=== PATIENT | female | born 1940 | race African-American/Black ===

== ENCOUNTER 2021-02-02 18:15 | Emergency (ER) | payer OTHER ==
[~2021-02-02] VITALS: Ht 167.6 cm; Wt 100.0 kg
[2021-02-02 19:27] LABS: BASOPHILS % 0.1 % (0.0-2.0); EOSINOPHILS % 0.5 % (0.0-5.0); HEMATOCRIT. 32.5 % (36.0-48.0); HEMOGLOBIN. 11.2 g/dL (12.0-16.0); MEAN CORPUSCULAR HEMOGLOBIN 33.6 pg (28.0-32.0); MEAN CORPUSCULAR VOLUME 97.4 fL (81.0-99.0); MEAN PLATELET VOLUME 10.2 fl (7.4-10.4); MONOCYTES % 8.2 % (2.0-8.0); NEUTROPHILS % 77.2 % (40.0-76.0); PLATELET 156 x1000/uL (130-400); RED BLOOD CELL COUNT 3.33 mill/uL (4.2-5.4); RED CELL DISTRIBUTION WIDTH 13.3 % (11.6-14.6)
[2021-02-02 19:42] LABS: CHLORIDE 106 mEq/L (98-107)
[2021-02-02 19:47] LABS: ETHANOL BLOOD < 10 mg/dL
[2021-02-02] MEDS ORDERED: ACETAMINOPHEN 325MG TABLET PO ONE (21:00)
[2021-02-02] MEDS ORDERED: MORPHINE SULFATE 2 MG/ML CPJ (NOT FOR IM USE) IV ONE (21:00)
[2021-02-02 22:34] LABS: CLARITY URINE CLEAR (CLEAR); COLOR URINE YELLOW (YELLOW); KETONES URINE NEGATIVE (NEGATIVE); LEUKOCYTE ESTERASE URINE NEGATIVE (NEGATIVE); NITRITE URINE NEGATIVE (NEGATIVE); OCCULT BLOOD URINE NEGATIVE (NEGATIVE); PH URINE 5.5 (4.5-8.0); PROTEIN URINE NEGATIVE (NEGATIVE); SPECIFIC GRAVITY URINE 1.008 (1.005-1.030); UROBILINOGEN URINE 0.2 E.U./dL (0.2-1.0)
[2021-02-02 22:43] LABS: *BARBITURATES SCREEN URINE NEGATIVE (NEGATIVE)
[2021-02-02 22:44] LABS: *AMPHETAMINES SCREEN URINE NEGATIVE (NEGATIVE); *BENZODIAZEPINES SCREEN URINE NEGATIVE (NEGATIVE); *COCAINE SCREEN URINE NEGATIVE (NEGATIVE); CANNABINOID URINE SCREEN PRESUMTIVE POSITIVE (NEGATIVE); METHADONE URINE SCREEN NEGATIVE (NEGATIVE); OPIATES URINE SCREEN NEGATIVE (NEGATIVE); PHENCYCLIDINE URINE SCREEN NEGATIVE (NEGATIVE)
[2021-02-03 02:17] VITALS: BP 159/51
== END 2021-02-03 02:37 | disposition short-term general hospital (02) ==
LOC: ER 18:15
DX: M79.18 Myalgia, other site (principal); R53.1 Weakness; E11.9 Type 2 diabetes mellitus without complications; I10 Essential (primary) hypertension
CPT/HCPCS: 36415; 70450; 71045; 72170; 73060; 73090; 73552; 80053; 80305; 80320; 81003; 82140; 82962; 83605; 83690; 84484; 85025; 86850; 86900; 86901; 93005; 96374; 99285; J2270; G0480

== ENCOUNTER 2022-01-29 09:13 | Emergency (ER) | payer OTHER ==
[~2022-01-29] VITALS: Ht 170.2 cm; Wt 75.0 kg
[2022-01-29] MEDS ORDERED: SODIUM CHLORIDE 0.9% 1000ML BAG (SEPSIS BOLUS) IV ONE (09:45)
[2022-01-29 10:20] LABS: BASOPHILS % 0.2 % (0.0-2.0); EOSINOPHILS % 0.7 % (0.0-5.0); HEMATOCRIT. 34.1 % (36.0-48.0); HEMOGLOBIN. 11.4 g/dL (12.0-16.0); LYMPHOCYTES % 17.5 % (20.0-50.0); MEAN CORPUSCULAR VOLUME 98.8 fL (81.0-99.0); MEAN PLATELET VOLUME 8.8 fl (7.4-10.4); NEUTROPHILS % 74.6 % (40.0-76.0); PLATELET 194 x1000/uL (130-400); RED BLOOD CELL COUNT 3.45 mill/uL (4.2-5.4); RED CELL DISTRIBUTION WIDTH 13.1 % (11.6-14.6)
[2022-01-29 10:28] LABS: CHLORIDE 104 mEq/L (98-107)
[2022-01-29 10:31] LABS: INR 0.9
[2022-01-29 12:50] LABS: CLARITY URINE CLEAR (CLEAR); COLOR URINE YELLOW (YELLOW); KETONES URINE NEGATIVE (NEGATIVE); LEUKOCYTE ESTERASE URINE NEGATIVE (NEGATIVE); NITRITE URINE NEGATIVE (NEGATIVE); OCCULT BLOOD URINE NEGATIVE (NEGATIVE); PH URINE 6.5 (4.5-8.0); PROTEIN URINE NEGATIVE (NEGATIVE); SPECIFIC GRAVITY URINE 1.011 (1.005-1.030)
[2022-01-29 14:00] VITALS: BP 129/56
== END 2022-01-29 14:29 | disposition short-term general hospital (02) ==
LOC: ER 09:29
DX: E86.0 Dehydration (principal); E11.9 Type 2 diabetes mellitus without complications; I10 Essential (primary) hypertension
CPT/HCPCS: 36415; 71045; 80053; 81003; 83605; 84145; 84484; 85025; 85610; 87040; 93005; 99285; J7030

== ENCOUNTER 2023-04-07 11:09 | Emergency (ER) | payer OTHER ==
[~2023-04-07] VITALS: Ht 167.6 cm; Wt 73.0 kg
[2023-04-07 11:27] VITALS: O2SAT 97
[2023-04-07] MEDS ORDERED: ONDANSETRON HCL 4MG/2ML INJ IV STA (11:29)
[2023-04-07] MEDS ORDERED: SODIUM CHLORIDE 0.9% 1,000 ML IV ONE (11:30)
[2023-04-07 13:46] LABS: BASOPHILS % 0.3 % (0.0-2.0); DIFFERENTIAL COMMENT 0; EOSINOPHILS % 0.6 % (0.0-5.0); HEMATOCRIT. 34.5 % (36.0-48.0); HEMOGLOBIN. 11.5 g/dL (12.0-16.0); LYMPHOCYTES % 18.6 % (20.0-50.0); MEAN CORPUSCULAR HEMOGLOBIN 33.3 pg (28.0-32.0); MEAN CORPUSCULAR HGB CONC 33.3 g/dL (31.0-37.0); MEAN CORPUSCULAR VOLUME 100.3 fL (81.0-99.0); MEAN PLATELET VOLUME 9.7 fl (7.4-10.4); MONOCYTES % 8.5 % (2.0-8.0); PLATELET 187 x1000/uL (130-400); RED BLOOD CELL COUNT 3.44 mill/uL (4.2-5.4); RED CELL DISTRIBUTION WIDTH 13.5 % (11.6-14.6); WHITE BLOOD COUNT 7.2 x1000/uL (4.5-11.0)
[2023-04-07 13:54] LABS: CHLORIDE 106 mEq/L (98-107); INDEX HEMOLYSI 1 (1-3); INDEX ICTERIC 1 (1-4); INDEX LIPEMIC 1 (1-3); POTASSIUM 4.3 mEq/L (3.5-5.1); SODIUM 140 mEq/L (136-145)
[2023-04-07 14:03] LABS: ALBUMIN 3.1 g/dL (3.4-5.0); ASPARTATE AMINOTRANSFERASE 18 IU/L (15-37); BILIRUBIN TOTAL 0.3 mg/dL (0.1-1.0); CALCIUM 9.3 mg/dL (8.5-10.1); CARBON DIOXIDE 29 mEq/L (21-32); CREATININE 1.2 mg/dL (0.6-1.3); PROTEIN TOTAL 6.7 g/dL (6.0-8.3); UREA NITROGEN BLOOD 20 mg/dL (7-21)
[2023-04-07 14:07] LABS: INR 0.9; PROTHROMBIN TIME 9.9 sec (9.6-11.0)
[2023-04-07] MEDS ORDERED: DIPHENHYDRAMINE 50MG CAPSULE PO ONE (15:30)
[2023-04-07 15:54] LABS: ALANINE AMINOTRANSFERASE 15 IU/L (13-61); GLUCOSE 155 mg/dL (70-105)
[2023-04-07 16:25] VITALS: BP 138/70; PULSE 70; RESP 15; TEMP 98.4
== END 2023-04-07 16:36 | disposition home or self-care (01) ==
LOC: ER 12:39
DX: R10.9 Unspecified abdominal pain (principal); E11.9 Type 2 diabetes mellitus without complications; I10 Essential (primary) hypertension; Z90.49 Acquired absence of other specified parts of digestive tract; Z98.890 Other specified postprocedural states
CPT/HCPCS: 99284; 74176; 96360; 80053; 83690; 85025; 85610; 36415; Q0163; J2405; J7030

== ENCOUNTER 2023-09-14 20:59 | Emergency (ER) | payer OTHER ==
[~2023-09-14] VITALS: Ht 172.7 cm; Wt 80.0 kg
[2023-09-14 21:01] VITALS: O2SAT 98
[2023-09-14 21:27] VITALS: TEMP 98.7
[2023-09-14] MEDS: SODIUM CHLORIDE 0.9% 1,000 ML IV ONE (22:00)
[2023-09-14 22:07] LABS: BASOPHILS % 0.3 % (0.0-2.0); EOSINOPHILS % 0.9 % (0.0-5.0); HEMATOCRIT. 36.2 % (36.0-48.0); HEMOGLOBIN. 12.2 g/dL (12.0-16.0); LYMPHOCYTES % 15.5 % (20.0-50.0); MEAN CORPUSCULAR HEMOGLOBIN 33.1 pg (28.0-32.0); MEAN CORPUSCULAR HGB CONC 33.8 g/dL (31.0-37.0); MEAN CORPUSCULAR VOLUME 97.8 fL (81.0-99.0); MEAN PLATELET VOLUME 10.4 fl (7.4-10.4); NEUTROPHILS % 77.3 % (40.0-76.0); PLATELET 193 x1000/uL (130-400); RED CELL DISTRIBUTION WIDTH 14.1 % (11.6-14.6); WHITE BLOOD COUNT 9.5 x1000/uL (4.5-11.0)
[2023-09-14 22:20] LABS: ALANINE AMINOTRANSFERASE 16 IU/L (10-49); ASPARTATE AMINOTRANSFERASE 31 IU/L (<34); BILIRUBIN TOTAL 0.3 mg/dL (0.1-1.0); CALCIUM 9.5 mg/dL (8.7-10.4); CARBON DIOXIDE 23 mEq/L (21-32); CHLORIDE 104 mEq/L (98-107); CREATININE 1.3 mg/dL (0.6-1.0); GLUCOSE 201 mg/dL (70-105); POTASSIUM 4.4 mEq/L (3.5-5.1); SODIUM 136 mEq/L (136-145); TROPONIN I HIGH SENSITIVITY 5 ng/L (3.0-34); UREA NITROGEN BLOOD 25 mg/dL (9-23)
[2023-09-14 23:14] LABS: INR 0.9; PROTHROMBIN TIME 10.6 sec (9.6-11.0)
[2023-09-14 23:16] LABS: TROPONIN I HIGH SENSITIVITY 6 ng/L (3.0-34)
[2023-09-14 23:59] LABS: CLARITY URINE CLEAR (CLEAR); COLOR URINE YELLOW (YELLOW); GLUCOSE URINE NEGATIVE (NEGATIVE); KETONES URINE NEGATIVE (NEGATIVE); LEUKOCYTE ESTERASE URINE TRACE (NEGATIVE); NITRITE URINE POSITIVE (NEGATIVE); OCCULT BLOOD URINE 1+ (NEGATIVE); PH URINE 5.5 (4.5-8.0); PROTEIN URINE 3+ (NEGATIVE); SPECIFIC GRAVITY URINE 1.013 (1.005-1.030); UROBILINOGEN URINE 0.2 E.U./dL (0.2-1.0)
[2023-09-15 00:34] LABS: BACTERIA URINE 2+; RBC URINE NONE SEEN /hpf (0-2); SQUAMOUS EPITHELIAL CELL URINE FEW /lpf (RARE/1+)
[2023-09-15] MEDS: CEFTRIAXONE 1GM PREMIX 50 ML IV ONE (02:24)
[2023-09-15 02:36] VITALS: BP 179/77; PULSE 84; RESP 14
== END 2023-09-15 02:54 | disposition short-term general hospital (02) ==
LOC: ER 20:59
DX: R55 Syncope and collapse (principal); N39.0 Urinary tract infection, site not specified; E11.9 Type 2 diabetes mellitus without complications; I10 Essential (primary) hypertension; Z90.49 Acquired absence of other specified parts of digestive tract
CPT/HCPCS: 99285; 70450; 71045; 96361; 80053; 81003; 82962; 83605; 85025; 85610; 86850; 86900; 86901; 87040; 84484; 36415; 74176; 96365; J7030; J0696

== ENCOUNTER 2024-02-14 14:31 | Inpatient (IN) | payer OTHER ==
[~2024-02-14] VITALS: Ht 167.6 cm; Wt 100.0 kg
[2024-02-14 14:35] VITALS: O2SAT 99
[2024-02-14 14:58] LABS: BASOPHILS % 0.2 % (0.0-2.0); DIFFERENTIAL COMMENT 0; HEMATOCRIT. 31.6 % (36.0-48.0); HEMOGLOBIN. 10.6 g/dL (12.0-16.0); LYMPHOCYTES % 29.1 % (20.0-50.0); MEAN CORPUSCULAR HEMOGLOBIN 33.6 pg (28.0-32.0); MEAN CORPUSCULAR HGB CONC 33.4 g/dL (31.0-37.0); MEAN CORPUSCULAR VOLUME 100.6 fL (81.0-99.0); MONOCYTES % 8.3 % (2.0-8.0); NEUTROPHILS % 61.4 % (40.0-76.0); PLATELET 199 x1000/uL (130-400); RED BLOOD CELL COUNT 3.14 mill/uL (4.2-5.4); RED CELL DISTRIBUTION WIDTH 13.3 % (11.6-14.6)
[2024-02-14] MEDS: SODIUM CHLORIDE 0.9% 1,000 ML IV ONE (15:01)
[2024-02-14] MEDS: ONDANSETRON HCL 4MG/2ML INJ IV STA (15:02)
[2024-02-14 15:03] LABS: CHLORIDE 109 mEq/L (98-107); SODIUM 139 mEq/L (136-145)
[2024-02-14 15:04] LABS: CALCIUM 8.8 mg/dL (8.7-10.4); CARBON DIOXIDE 23 mEq/L (21-32)
[2024-02-14 15:08] LABS: INR 0.9; PROTHROMBIN TIME 10.5 sec (9.6-11.0)
[2024-02-14 15:09] LABS: CREATININE 1.3 mg/dL (0.6-1.0); GLUCOSE 209 mg/dL (70-105); UREA NITROGEN BLOOD 30 mg/dL (9-23)
[2024-02-14 15:10] LABS: TROPONIN I HIGH SENSITIVITY 4 ng/L (3.0-34)
[2024-02-14 16:49] LABS: TROPONIN I HIGH SENSITIVITY 18 ng/L (3.0-34)
[2024-02-14] MEDS: ASPIRIN 325MG EC TABLET PO NR (19:04)
[2024-02-14] MEDS ORDERED: GUAIFENESIN 200MG/10ML SUGAR FREE UDC PO PRN (19:45)
[2024-02-14] MEDS ORDERED: IPRATROPIUM/ALBUTEROL 0.5-3(2.5)MG/3ML NEB NEB PRN (19:45)
[2024-02-14] MEDS ORDERED: ACETAMINOPHEN 325MG TABLET PO PRN ×2 (19:45)
[2024-02-14] MEDS ORDERED: NITROGLYCERIN 0.4MG TABLET SL SL PRN (19:45)
[2024-02-14] MEDS ORDERED: MAGNESIUM/ALUMINUM HYDROXIDE/SIMETHICONE 30ML UDC PO PRN (19:45)
[2024-02-14] MEDS ORDERED: ONDANSETRON HCL 4MG/2ML INJ IV PRN (19:45)
[2024-02-14] MEDS ORDERED: CLONIDINE 0.1MG TABLET PO PRN (19:45)
[2024-02-14 20:09] LABS: IRON 70 ug/dL (50-170); TRIGLYCERIDE 121 mg/dL (0-150)
[2024-02-14 20:10] LABS: LDL CHOLESTEROL 87 mg/dL (5-100)
[2024-02-14 20:12] LABS: CHOLESTEROL 146 mg/dL (<200); HDL CHOLESTEROL 45 mg/dL (>65); TOTAL IRON BINDING CAPACITY 181 ug/dl (250-425)
[2024-02-14 20:14] LABS: FOLIC ACID (FOLATE) SERUM 19.49 ng/mL (>5.38); T4 FREE 0.94 ng/dL (0.89-1.76); THYROID STIMULATING HORMONE 3.36 uIU/mL (0.55-4.78); VITAMIN B12 SERUM 375 pg/mL (211-911)
[2024-02-14 20:20] LABS: ALANINE AMINOTRANSFERASE 12 IU/L (10-49); ALBUMIN 3.5 g/dL (3.2-4.8); ASPARTATE AMINOTRANSFERASE 20 IU/L (<34); BILIRUBIN DIRECT 0.1 mg/dL (<=3.0)
[2024-02-14 20:21] LABS: BILIRUBIN TOTAL 0.4 mg/dL (0.1-1.0)
[2024-02-14] MEDS ORDERED: VANCOMYCIN 1.5GM/250ML 250 ML IV NR (20:23)
[2024-02-14] MEDS ORDERED: DEXTROSE 50% WATER 50ML SYRINGE IV PRN (20:30)
[2024-02-14] MEDS: LACTATED RINGERS 2,000 ML IV SCH (20:40)
[2024-02-14] MEDS: ASCORBIC ACID 500 MG TABLET PO SCH (21:15)
[2024-02-14] MEDS: FAMOTIDINE 20MG TABLET PO SCH (21:16)
[2024-02-14] MEDS: BLOOD SUGAR DIAGNOSTIC STRIP TEST SCH (21:53)
[2024-02-14] MEDS: INSULIN LISPRO 100 UNITS/ML SUBCUT SCH (22:03)
[2024-02-14] MEDS: MEROPENEM 1G/100ML 100 ML IV SCH (23:09)
[2024-02-14] MEDS: DOCUSATE SODIUM 100MG CAPSULE PO PRN (23:21)
[2024-02-15 00:17] LABS: CREATINE KINASE MB FRACTION 1.7 ng/mL (0.5-3.6)
[2024-02-15] MEDS: ZOLPIDEM TARTRATE 5MG TABLET PO PRN (00:34)
[2024-02-15] MEDS: VANCOMYCIN 1,750 MG in DEXT 5% WATER 500 ML IV NR (00:36)
[2024-02-15 06:37] LABS: BASOPHILS % 0.3 % (0.0-2.0); DIFFERENTIAL COMMENT 0; EOSINOPHILS % 1.1 % (0.0-5.0); HEMATOCRIT. 31.1 % (36.0-48.0); HEMOGLOBIN. 10.5 g/dL (12.0-16.0); LYMPHOCYTES % 17.7 % (20.0-50.0); MEAN CORPUSCULAR HEMOGLOBIN 34.2 pg (28.0-32.0); MEAN CORPUSCULAR HGB CONC 33.9 g/dL (31.0-37.0); MEAN CORPUSCULAR VOLUME 100.7 fL (81.0-99.0); MEAN PLATELET VOLUME 9.2 fl (7.4-10.4); MONOCYTES % 8.8 % (2.0-8.0); NEUTROPHILS % 72.1 % (40.0-76.0); PLATELET 192 x1000/uL (130-400); RED BLOOD CELL COUNT 3.09 mill/uL (4.2-5.4); RED CELL DISTRIBUTION WIDTH 13.1 % (11.6-14.6); WHITE BLOOD COUNT 10.7 x1000/uL (4.5-11.0)
[2024-02-15 06:46] LABS: CHLORIDE 110 mEq/L (98-107); POTASSIUM 5.1 mEq/L (3.5-5.1); SODIUM 139 mEq/L (136-145)
[2024-02-15 06:47] LABS: CALCIUM 9.3 mg/dL (8.7-10.4); CARBON DIOXIDE 24 mEq/L (21-32)
[2024-02-15 06:52] LABS: CREATINE KINASE MB FRACTION 1.6 ng/mL (0.5-3.6); CREATININE 1.2 mg/dL (0.6-1.0); GLUCOSE 159 mg/dL (70-105)
[2024-02-15 06:53] LABS: TROPONIN I HIGH SENSITIVITY 28 ng/L (3.0-34); UREA NITROGEN BLOOD 20 mg/dL (9-23)
[2024-02-15 06:54] LABS: ALANINE AMINOTRANSFERASE 14 IU/L (10-49); ALBUMIN 3.4 g/dL (3.2-4.8); ASPARTATE AMINOTRANSFERASE 18 IU/L (<34); CREATINE KINASE 81 IU/L (34-145)
[2024-02-15 06:55] LABS: BILIRUBIN TOTAL 0.4 mg/dL (0.1-1.0); PHOSPHORUS 2.9 mg/dL (2.5-4.9); PROTEIN TOTAL 5.7 g/dL (6.0-8.3)
[2024-02-15] MEDS: ZINC SULFATE 220 MG ( 50 ) CAPSULE PO SCH (09:50)
[2024-02-15] MEDS: ENOXAPARIN 40MG/0.4ML SYR SUBCUT SCH (09:50)
[2024-02-15] MEDS: ASPIRIN 81MG EC TABLET PO SCH (09:50)
[2024-02-15] MEDS: MEROPENEM 1G/100ML 100 ML IV SCH (10:42)
[2024-02-15 18:00] VITALS: BP 132/78; PULSE 82; RESP 18; TEMP 97.5
[2024-02-15 20:00] VITALS: BP 143/73; PULSE 73; RESP 19; TEMP 97.7
[2024-02-16] MEDS ORDERED: VANCOMYCIN 1G PREMIX 200 ML IV SCH (08:00)
== END 2024-02-15 23:50 | disposition short-term general hospital (02) | DRG 871 ==
LOC: ER 14:31 → EDBEDREQTM 19:25 → EDBEDREQ 19:44 → EDBEDREQTM 19:44 → 5WST 21:57 → 7EST 02-15 17:47
PROVIDERS: ADMIT Internal Medicine; ATTEND Internal Medicine
DX: A41.9 Sepsis, unspecified organism (principal); G92.8 Other toxic encephalopathy; D63.8 Anemia in other chronic diseases classified elsewhere; E11.9 Type 2 diabetes mellitus without complications; E66.9 Obesity, unspecified; F03.90 Unspecified dementia, unspecified severity, without behavioral disturbance, psychotic disturbance, mood disturbance, and anxiety; I11.9 Hypertensive heart disease without heart failure; Z79.4 Long term (current) use of insulin; Z90.49 Acquired absence of other specified parts of digestive tract; Z68.35 Body mass index [BMI] 35.0-35.9, adult
CPT/HCPCS: 36415; 71045; 80048; 80053; 80061; 80076; 82550; 82553; 82607; 82746; 82962; 83036; 83540; 83550; 83605; 83735; 83880; 84100; 84145; 84439; 84443; 84484; 85025; 93005; 93306; 93970; 99291; C1893; J1650; J1815; J2185; J2405; J3370; J7030; J7060

== ENCOUNTER 2024-06-17 01:40 | Emergency (ER) | payer OTHER ==
[~2024-06-17] VITALS: Ht 162.6 cm; Wt 82.0 kg
[2024-06-17 01:47] VITALS: O2SAT 98
[2024-06-17 03:20] VITALS: TEMP 98.2
[2024-06-17] MEDS: ACETAMINOPHEN 325MG TABLET PO STA (03:20)
[2024-06-17 03:26] LABS: BASOPHILS % 0.2 % (0.0-2.0); DIFFERENTIAL COMMENT 0; EOSINOPHILS % 2.2 % (0.0-5.0); HEMATOCRIT. 29.8 % (36.0-48.0); HEMOGLOBIN. 9.6 g/dL (12.0-16.0); LYMPHOCYTES % 18.2 % (20.0-50.0); MEAN CORPUSCULAR HEMOGLOBIN 32.4 pg (28.0-32.0); MEAN CORPUSCULAR HGB CONC 32.3 g/dL (31.0-37.0); MEAN CORPUSCULAR VOLUME 100.1 fL (81.0-99.0); MEAN PLATELET VOLUME 9.2 fl (7.4-10.4); MONOCYTES % 10.7 % (2.0-8.0); NEUTROPHILS % 68.7 % (40.0-76.0); PLATELET 196 x1000/uL (130-400); RED BLOOD CELL COUNT 2.98 mill/uL (4.2-5.4); RED CELL DISTRIBUTION WIDTH 13.5 % (11.6-14.6); WHITE BLOOD COUNT 6.5 x1000/uL (4.5-11.0)
[2024-06-17 03:33] LABS: CHLORIDE 107 mEq/L (98-107); POTASSIUM 4.2 mEq/L (3.5-5.1); SODIUM 137 mEq/L (136-145)
[2024-06-17 03:34] LABS: CARBON DIOXIDE 23 mEq/L (21-32)
[2024-06-17 03:35] LABS: CALCIUM 9.2 mg/dL (8.7-10.4)
[2024-06-17 03:39] LABS: CREATININE 1.2 mg/dL (0.6-1.0); GLUCOSE 174 mg/dL (70-105)
[2024-06-17 03:40] LABS: UREA NITROGEN BLOOD 20 mg/dL (9-23)
[2024-06-17 03:41] LABS: TROPONIN I HIGH SENSITIVITY 11 ng/L (3.0-34)
[2024-06-17 06:38] VITALS: BP 117/70; PULSE 89; RESP 18; O2SAT 97
== END 2024-06-17 07:25 | disposition home or self-care (01) ==
LOC: ER 01:40
DX: R60.0 Localized edema (principal); M79.604 Pain in right leg; M79.605 Pain in left leg; M79.89 Other specified soft tissue disorders; I10 Essential (primary) hypertension; E11.9 Type 2 diabetes mellitus without complications; F03.90 Unspecified dementia, unspecified severity, without behavioral disturbance, psychotic disturbance, mood disturbance, and anxiety; Z90.49 Acquired absence of other specified parts of digestive tract
CPT/HCPCS: 36415; 71045; 80048; 83880; 84484; 85025; 93005; 93970; 99285

== ENCOUNTER 2024-08-09 01:34 | Emergency (ER) | payer OTHER ==
[~2024-08-09] VITALS: Ht 167.6 cm; Wt 82.0 kg
[2024-08-09 01:49] VITALS: TEMP 98.4; O2SAT 100
[2024-08-09] MEDS: LABETALOL 5MG/ML 4ML INJ IV ONE (09:12)
[2024-08-09 10:22] LABS: BASOPHILS % 0.2 % (0.0-2.0); DIFFERENTIAL COMMENT 0; EOSINOPHILS % 2.1 % (0.0-5.0); HEMATOCRIT. 32.3 % (36.0-48.0); HEMOGLOBIN. 10.5 g/dL (12.0-16.0); LYMPHOCYTES % 18.6 % (20.0-50.0); MEAN CORPUSCULAR HEMOGLOBIN 33.4 pg (28.0-32.0); MEAN CORPUSCULAR HGB CONC 32.5 g/dL (31.0-37.0); MEAN CORPUSCULAR VOLUME 102.8 fL (81.0-99.0); MONOCYTES % 10.2 % (2.0-8.0); NEUTROPHILS % 68.9 % (40.0-76.0); PLATELET 239 x1000/uL (130-400); RED BLOOD CELL COUNT 3.14 mill/uL (4.2-5.4); RED CELL DISTRIBUTION WIDTH 13.9 % (11.6-14.6); WHITE BLOOD COUNT 8.3 x1000/uL (4.5-11.0)
[2024-08-09 10:28] LABS: POTASSIUM 4.6 mEq/L (3.5-5.1)
[2024-08-09 10:29] LABS: CALCIUM 9.3 mg/dL (8.7-10.4)
[2024-08-09 10:34] LABS: CREATININE 1.3 mg/dL (0.6-1.0)
[2024-08-09] MEDS: HYDRALAZINE 20MG/ML VIAL IV SCH (12:07)
[2024-08-09 13:10] VITALS: BP 107/84; PULSE 74; RESP 20; O2SAT 100
== END 2024-08-09 13:47 | disposition short-term general hospital (02) ==
LOC: ER 01:34
DX: F03.90 Unspecified dementia, unspecified severity, without behavioral disturbance, psychotic disturbance, mood disturbance, and anxiety (principal); M17.11 Unilateral primary osteoarthritis, right knee; R26.89 Other abnormalities of gait and mobility; E11.9 Type 2 diabetes mellitus without complications; E78.00 Pure hypercholesterolemia, unspecified; I10 Essential (primary) hypertension; R62.7 Adult failure to thrive; Z90.49 Acquired absence of other specified parts of digestive tract; Z98.890 Other specified postprocedural states
CPT/HCPCS: 80048; 85025; 36415; 71045; 73560; 96374; 96375; 99285; J0360; J3490; Z7610 ×2

== ENCOUNTER 2024-11-01 07:06 | Inpatient (IN) | payer OTHER ==
[~2024-11-01] VITALS: Ht 162.6 cm; Wt 67.6 kg
[2024-11-01] MEDS ORDERED: SODIUM CHLORIDE 0.9% (SEPSIS BOLUS) IV ONE (07:30)
[2024-11-01] MEDS: CEFTRIAXONE 1GM/50ML 50 ML IV ONE (07:54)
[2024-11-01 08:05] LABS: BASOPHILS % 0.3 % (0.0-2.0); DIFFERENTIAL COMMENT 0; EOSINOPHILS % 1.7 % (0.0-5.0); HEMATOCRIT. 32.7 % (36.0-48.0); HEMOGLOBIN. 10.7 g/dL (12.0-16.0); LYMPHOCYTES % 21.3 % (20.0-50.0); MEAN CORPUSCULAR HEMOGLOBIN 33.3 pg (28.0-32.0); MEAN CORPUSCULAR HGB CONC 32.6 g/dL (31.0-37.0); MEAN CORPUSCULAR VOLUME 102.2 fL (81.0-99.0); MEAN PLATELET VOLUME 9.3 fl (7.4-10.4); MONOCYTES % 7.8 % (2.0-8.0); NEUTROPHILS % 68.9 % (40.0-76.0); PLATELET 202 x1000/uL (130-400); RED CELL DISTRIBUTION WIDTH 13.9 % (11.6-14.6); WHITE BLOOD COUNT 7.2 x1000/uL (4.5-11.0)
[2024-11-01 08:10] LABS: CHLORIDE 112 mEq/L (98-107); POTASSIUM 4.5 mEq/L (3.5-5.1); SODIUM 143 mEq/L (136-145)
[2024-11-01 08:11] LABS: CALCIUM 9.4 mg/dL (8.7-10.4); CARBON DIOXIDE 24 mEq/L (21-32)
[2024-11-01 08:16] LABS: CREATININE 1.2 mg/dL (0.6-1.0); GLUCOSE 148 mg/dL (70-105); UREA NITROGEN BLOOD 23 mg/dL (9-23)
[2024-11-01 08:17] LABS: TROPONIN I HIGH SENSITIVITY 8 ng/L (3.0-34)
[2024-11-01 09:03] LABS: CLARITY URINE CLOUDY (CLEAR); COLOR URINE YELLOW (YELLOW); GLUCOSE URINE NEGATIVE (NEGATIVE); KETONES URINE NEGATIVE (NEGATIVE); LEUKOCYTE ESTERASE URINE TRACE (NEGATIVE); NITRITE URINE NEGATIVE (NEGATIVE); OCCULT BLOOD URINE NEGATIVE (NEGATIVE); PH URINE 5.5 (4.5-8.0); PROTEIN URINE 3+ (NEGATIVE); SPECIFIC GRAVITY URINE 1.022 (1.005-1.030)
[2024-11-01 09:33] LABS: BACTERIA URINE 4+; RBC URINE NONE SEEN /hpf (0-2); WBC URINE 15-25 /hpf (0-2); YEAST URINE NONE SEEN
[2024-11-01 09:34] LABS: SQUAMOUS EPITHELIAL CELL URINE 1+ /lpf (RARE/1+)
[2024-11-01 10:31] LABS: TROPONIN I HIGH SENSITIVITY 9 ng/L (3.0-34)
[2024-11-01] MEDS: HYDRALAZINE 20MG/ML VIAL IV ONE (11:52)
[2024-11-01 13:15] VITALS: BP 175/62; PULSE 101; RESP 20; TEMP 36.7; TEMP 36.8; O2SAT 99
[2024-11-01 14:16] VITALS: BP 157/64
[2024-11-01 16:00] VITALS: BP 171/76; PULSE 84; RESP 20; TEMP 36.2; O2SAT 99
[2024-11-01] MEDS: CLONIDINE 0.1MG TABLET PO PRN (18:08)
[2024-11-01] MEDS ORDERED: LOSA25TA26 MT (18:58)
[2024-11-01] MEDS ORDERED: LOSA1TAB40 MT (18:58)
[2024-11-01] MEDS ORDERED: TRAZ-251 MT (18:58)
[2024-11-01] MEDS ORDERED: INSU100V43 SQ (18:58)
[2024-11-01] MEDS ORDERED: OMEP20CA14 MT (18:58)
[2024-11-01 20:00] VITALS: BP 144/81; PULSE 70; RESP 20; TEMP 36.7; O2SAT 98
[2024-11-02] VITALS (7 sets, daily range): BP systolic 90–171; BP diastolic 44–103; PULSE 71–90; RESP 18–20; TEMP 36.1–36.7; O2SAT 96–100
[2024-11-02] MEDS ORDERED: CLONIDINE 0.1MG TABLET PO PRN (00:45)
[2024-11-02] MEDS ORDERED: DIPHENHYDRAMINE 50MG/ML VIAL IV PRN (00:45)
[2024-11-02] MEDS ORDERED: DEXTROSE 50% WATER 50ML SYRINGE IV PRN (00:45)
[2024-11-02] MEDS ORDERED: ACETAMINOPHEN 325MG TABLET PO PRN ×2 (00:45)
[2024-11-02] MEDS ORDERED: ONDANSETRON HCL 4MG/2ML INJ IV PRN (00:45)
[2024-11-02] MEDS: SODIUM CHLORIDE 0.9% 250 ML IV ONE (02:15)
[2024-11-02] MEDS: SODIUM CHLORIDE 0.9% 1,000 ML IV SCH (03:14)
[2024-11-02] MEDS: SODIUM CHLORIDE 0.9% 3ML FLUSH IVF SCH (06:13)
[2024-11-02] MEDS: INSULIN LISPRO 100 UNITS/ML SUBCUT SCH (06:32)
[2024-11-02] MEDS: BLOOD SUGAR DIAGNOSTIC STRIP TEST SCH (06:32)
[2024-11-02 06:55] LABS: HEMATOCRIT 32.2 % (36.0-48.0); HEMOGLOBIN 10.6 g/dL (12.0-16.0); MEAN CORPUSCULAR HEMOGLOBIN 33.4 pg (28.0-32.0); MEAN CORPUSCULAR HGB CONC 33.1 g/dL (31.0-37.0); MEAN CORPUSCULAR VOLUME 101.1 fL (81.0-99.0); PLATELET 206 x1000/uL (130-400); RED BLOOD CELL COUNT 3.18 mill/uL (4.2-5.4); RED CELL DISTRIBUTION WIDTH 13.5 % (11.6-14.6); WHITE BLOOD COUNT 7.9 x1000/uL (4.5-11.0)
[2024-11-02] MEDS ORDERED: APIXABAN 2.5 MG TABLET PO SCH (09:00)
[2024-11-02] MEDS: LOSARTAN 25 MG TABLET PO SCH (09:37)
[2024-11-02] MEDS: FLUOXETINE HCL 20MG CAPSULE PO SCH (09:37)
[2024-11-02] MEDS: APIXABAN 5 MG TABLET PO SCH (09:37)
[2024-11-02] MEDS ORDERED: ATORVASTATIN CALCIUM 40MG TABLET PO SCH (21:00)
== END 2024-11-02 18:52 | disposition short-term general hospital (02) | DRG 74 ==
LOC: ER 07:06 → 8WST 12:26 → EDBEDREQ 12:37 → EDBEDREQTM 12:37
PROVIDERS: ADMIT Internal Medicine; ATTEND Internal Medicine
DX: G90.89 Other disorders of autonomic nervous system (principal); I16.9 Hypertensive crisis, unspecified; N39.0 Urinary tract infection, site not specified; E11.9 Type 2 diabetes mellitus without complications; I10 Essential (primary) hypertension; E78.00 Pure hypercholesterolemia, unspecified; R62.7 Adult failure to thrive; Z90.710 Acquired absence of both cervix and uterus; Z90.49 Acquired absence of other specified parts of digestive tract; Z86.718 Personal history of other venous thrombosis and embolism; Z68.25 Body mass index [BMI] 25.0-25.9, adult
CPT/HCPCS: 36415; 71045; 80048; 81003; 82962; 83036; 83605; 84145; 84484; 85025; 85027; 87077; 87186; 93005; 99291; J0360; J0696; J7030

== ENCOUNTER 2025-05-23 22:37 | Emergency (ER) | payer OTHER ==
[~2025-05-23] VITALS: Ht 172.7 cm; Wt 73.0 kg
[~2025-05-23 22:37] MED LIST: INSU100V43 SQ; LOSA1TAB40 MT; LOSA25TA26 MT; OMEP20CA14 MT; TRAZ-251 MT
[2025-05-23 22:38] VITALS: O2SAT 95
[2025-05-23 23:54] LABS: HEMATOCRIT. 29.4 % (36.0-48.0); HEMOGLOBIN. 9.8 g/dL (12.0-16.0); MEAN PLATELET VOLUME 9.0 fl (7.4-10.4); PLATELET 221 x1000/uL (130-400); RED BLOOD CELL COUNT 2.93 mill/uL (4.2-5.4); RED CELL DISTRIBUTION WIDTH 13.2 % (11.6-14.6)
[2025-05-24 00:24] LABS: CREATININE 1.4 mg/dL (0.6-1.0); UREA NITROGEN BLOOD 20 mg/dL (9-23)
[2025-05-24 00:25] LABS: TROPONIN I HIGH SENSITIVITY 5 ng/L (3.0-34)
[2025-05-24] MEDS: HYDRALAZINE 20MG/ML VIAL IV ONE (02:04)
[2025-05-24 02:33] LABS: TROPONIN I HIGH SENSITIVITY 8 ng/L (3.0-34)
[2025-05-24 04:00] VITALS: BP 153/58; PULSE 92; RESP 15; TEMP 36.7; O2SAT 98
[2025-05-24 05:01] LABS: LYMPHOCYTES % MANUAL 7.0 % (20.0-60.0); MONOCYTES % MANUAL 3.0 % (2.0-8.0); NEUTROPHILS % MANUAL 90.0 % (45.0-75.0)
[2025-05-24 05:03] LABS: PLATELET ESTIMATE NORMAL
== END 2025-05-24 04:25 | disposition short-term general hospital (02) ==
LOC: ER 22:37 → EDBEDREQDT 05-24 01:55 → EDBEDREQ 05-24 01:55 → EDBEDREQTM 05-24 01:55 → CANBEDREQ 05-24 01:57 → ER 05-24 04:25 → CMPBEDREQ 05-24 18:40
DX: E11.9 Type 2 diabetes mellitus without complications (principal); E78.00 Pure hypercholesterolemia, unspecified; F03.90 Unspecified dementia, unspecified severity, without behavioral disturbance, psychotic disturbance, mood disturbance, and anxiety; I10 Essential (primary) hypertension; I67.82 Cerebral ischemia; R56.9 Unspecified convulsions; Z79.899 Other long term (current) drug therapy; Z90.49 Acquired absence of other specified parts of digestive tract
CPT/HCPCS: 80048; 83605; 85025; 84484 ×2; 36415 ×2; 71045; 93005; 99285; 70450; 96374; J0360; Z7610